=== PATIENT | female | born 1940 | race Caucasian/White ===

== ENCOUNTER 2023-03-05 05:35 | Inpatient (IN) | payer MEDICARE ==
[2023-02-26 14:41] LABS: ABG BASE EXCESS -2.6 mmol/L (-2.0-2.0); ABG HCO3 21.8 mmol/L (22.0-26.0); ABG OXYGEN SATURATION 96.8 % (94-97); ABG PCO2 (T) 36.2 mmHg (32.0-45.0); ABG PH (T) 7.397 (7.350-7.450); ABG PO2 (T) 91.8 mmHg (75.0-100.0); ALLEN'S TEST POSITIVE; FCOHb 0.4 % (0.0-3.9); FHHb 3.2 % (0.0-5.0); FMetHb 0.3 % (0.0-1.5); FO2Hb 96.1 % (94-97); MODE ROOM AIR; TOTAL HEMOGLOBIN 12.1 G/dl (12.0-16.0)
[2023-02-26 15:26] LABS: BILIRUBIN,URINE NEGATIVE (Neg); CLARITY,URINE CLEAR (Clear); COLOR,URINE YELLOW (Yellow); GLUCOSE, URINE NEGATIVE (Neg); KETONES,URINE NEGATIVE (Neg); LEUKOCYTE ESTERASE ,URINE NEGATIVE (Neg); NITRITES, URINE NEGATIVE (Neg); OCCULT BLOOD,URINE NEGATIVE (Neg); PROTEIN,URINE NEGATIVE (Neg); UROBILINOGEN,URINE 0.2 E.U/dL (0.2-1.0)
[2023-02-26 15:28] LABS: BASOPHILS # (AUTO) 0.1 X10'3 (0-0.2); BASOPHILS % (AUTO) 1.1 % (0-1); EOSINOPHILS # (AUTO) 0.3 X10'3 (0-0.9); EOSINOPHILS % (AUTO) 3.9 % (0-6); LYMPHOCYTES # (AUTO) 3.3 X10'3 (1.1-4.8); LYMPHOCYTES % (AUTO) 39.5 % (21-51); MEAN CORPUSCULAR HEMOGLOBIN 30.1 PG (27.0-31.0); MEAN CORPUSCULAR HGB CONC 33.9 g/dL (33.0-36.5); MEAN CORPUSCULAR VOLUME 88.8 FL (78-98); MEAN PLATELET VOLUME 7.1 FL (7.4-10.4); MONOCYTES # (AUTO) 0.5 X10'3 (0-0.9); NEUTROPHILS # (AUTO) 4.1 X10'3 (1.8-7.7); NEUTROPHILS % (AUTO) 49.5 % (42-75); PRE OP HEMATOCRIT 34.8 % (35.0-45.0); PRE OP HEMOGLOBIN 11.8 g/dL (12.0-16.0); PRE OP PLATELET COUNT 325 X10'3 (140-440); PRE OP WHITE BLOOD COUNT 8.3 10'3 (4.8-10.8); RED BLOOD COUNT 3.91 X10'6 (4.20-5.60)
[2023-02-26 15:31] LABS: UA COLLECTION TYPE CLN CATCH MIDSTREAM
[2023-02-26 15:39] LABS: PRE OP PROTIME 10.3 SECONDS (9.0-12.0)
[2023-02-26 15:44] LABS: ALBUMIN 4.1 G/DL (3.4-5.0); ALBUMIN/GLOBULIN RATIO 1.1 (1.1-1.5); ALKALINE PHOSPHATASE 69 IU/L (46-116); BLOOD UREA NITROGEN 15 MG/DL (7-18); BUN/CREATININE RATIO 13.5 (10.0-20.0); CALCIUM 9.6 MG/DL (8.5-10.1); CHLORIDE 101 MMOL/L (99-107); CREATININE 1.11 MG/DL (0.40-0.90); PRE OP ALT 17 U/L (30-65); PRE OP ANION GAP 11 (8-16); PRE OP AST 18 U/L (10-37); PRE OP BILIRUB, TOTAL 0.4 MG/DL (0.0-1.0); PRE OP GLUCOSE 158 MG/DL (70-104); PRE OP POTASSIUM 4.4 MMOL/L (3.4-5.1); PRE OP SODIUM 136 MMOL/L (135-145); TOTAL CARBON DIOXIDE 23.6 MMOL/L (24-32); TOTAL PROTEIN 7.7 G/DL (6.4-8.2); eCRCL 39 ML/MIN; eGFR 47 ML/MIN
[2023-02-26 15:46] LABS: HEMOGLOBIN A1C 7.4 % (4.5-6.2)
[~2023-03-05] VITALS: Ht 165.1 cm; Wt 63.7 kg
[2023-03-05] VITALS (26 sets, daily range): BP systolic 100–141; BP diastolic 35–62; PULSE 64–78; RESP 12–23; TEMP 96.7; O2SAT 94–99
[~2023-03-05 05:35] MED LIST: AMLO5TAB4 PO; ASPI-612 PO; ATOR20TA PO; CALC600T26 PO; CYAN50009 PO; DICL100G59 TOP; DIPH25TA62 PO; DOCUMENT DATE & TIME OF BETA-BLOCKER PO ONE; EVOL140P3 SUBCUT; FLAX10007 PO; HYDR28CR14 TOP; ISOS30TA84 PO; Insulin Reg/NS 100units/100mL 100 ML IV SCH; LANTUS SQ; LOP12.5T PO; LOPE2CAP PO; LORazepam 2 mg/ml vial IV ONE; LOSA-416 PO; OMEG100037 PO; OMEP20CA16 PO; PREMARIN 0.625 MG VG; RESV250C2 PO; SITA1TAB6 PO; UBID200C18 PO; [UNRECOGNIZED DRUG - OTHER] PO; albuterol 2.5 MG/3 ML nebule NEB ONE; cefazolin 2gm/D5W 100mL 100 ML IV ONE; dextrose 50%-water 50ml dispensing syringe IV PRN; famotidine 20mg tablet PO ONE; metoprolol tartrate 12.5mg (1/2 tablet) PO ONE; mupirocin 2% nasal ointment 1gm UD NS ONE; ringers solution, lacted 1,000 ML IV SCH; vancomycin/NS 1 GM in NS 250 ML IV ONE
[2023-03-05] MEDS ORDERED: epiNEPHrine 1 mg/ml inj ONE ×2 (06:56→12:36)
[2023-03-05] MEDS ORDERED: ceFAZolin 1000mg inj ONE (06:56)
[2023-03-05] MEDS ORDERED: heparin 10,000 units/1 ML INJ ONE ×2 (06:56→08:00)
[2023-03-05] MEDS ORDERED: BUPIVAcaine 0.5% inj/PF 30 ML ONE (06:56)
[2023-03-05] MEDS ORDERED: vancomycin 1,000mg inj ONE (07:01)
[2023-03-05] MEDS ORDERED: midazolam 1 mg/ML 2ml injection ONE (07:22)
[2023-03-05] MEDS ORDERED: SUfentanil 50mcg/ml 1ml amp IV ONE ×2 (07:22)
[2023-03-05] MEDS ORDERED: albumin (human) 25% 100 ML IV solution IV ONE (08:00)
[2023-03-05] MEDS ORDERED: MAGNESIUM SULFATE 4 MEQ/ML (5gm/10ml) injection ONE (08:00)
[2023-03-05] MEDS ORDERED: methylPREDNISolone sod succ 1000mg vial ONE (08:00)
[2023-03-05] MEDS ORDERED: NORepinephrine 1 mg/ml inj IV ONE (08:00)
[2023-03-05] MEDS ORDERED: mannitol 12.5gm/50mL VIAL IV ONE (08:00)
[2023-03-05] MEDS ORDERED: sodium bicarbonate (8.4%) 1 mEq/ml syringe ONE (08:00)
[2023-03-05] MEDS ORDERED: calcium chloride 100 MG/1 ML inj IV ONE (08:00)
[2023-03-05] MEDS ORDERED: aminocaproic acid 250 MG/1 ML inj. ONE (08:00)
[2023-03-05] MEDS ORDERED: papaverine 30 mg/ml 2ml inj. ONE (08:00)
[2023-03-05] MEDS ORDERED: BUPIVAcaine 0.5% inj/PF 30 ml vial IJ ONE (08:23)
[2023-03-05] MEDS ORDERED: protamine sulf. 10mg/ml inj. IV ONE (10:15)
[2023-03-05] MEDS ORDERED: NORepinephrine 8 MG in NS 250 ML BAG (32 mcg/ml) IV ONE (10:15)
[2023-03-05] MEDS ORDERED: nitroGLYCERIN in D5W 50mg/250ml (Tridil) infusion IV ONE (10:15)
[2023-03-05] MEDS ORDERED: LIDOcaine 2% (20mg/ml) 5ml vial ONE ×2 (10:15→12:36)
[2023-03-05] MEDS ORDERED: labetalol 20mg/4ml (5mg/ml) syringe IV ONE (10:15)
[2023-03-05] MEDS ORDERED: isoflurane 100ml inhalation liquid IH ONE (10:15)
[2023-03-05 10:57] LABS: ABG BASE EXCESS -0.5 mmol/L (-2.0-2.0); ABG HCO3 23.2 mmol/L (22.0-26.0); ABG OXYGEN SATURATION 99.3 % (94-97); ABG PCO2 34.7 mmHg (32.0-45.0); ABG PH 7.443 (7.350-7.450); ABG PO2 369.2 mmHg (75.0-100.0); CL (ABG) 106 mmol/L (99-107); FCOHb 0.3 % (0.0-3.9); FHHb 0.7 % (0.0-5.0); FMetHb 0.3 % (0.0-1.5); FO2Hb 98.7 % (94-97); GLUCOSE (ABG) 116 mg/dl (70-104); IONIZED CA (ABG) 1.17 mmol/L (1.10-1.30); TOTAL HEMOGLOBIN 10.4 G/dl (12.0-16.0)
[2023-03-05 11:08] LABS: ACT @ 1.70 U 292 SEC (193-297); ACT @ 2.84 U 418 SEC (260-420); BASELINE ACT 133 SEC (101-148); PATIENT WEIGHT 63.0k KG
[2023-03-05 12:00] LABS: ABG BASE EXCESS VENOUS 1.5 mmol/L (-2.0 - 2.0); ABG OXYGEN SATURATION VENOUS 85.1 % (75 - 99 %); ABG PCO2 VENOUS 40.3 mmHg (38.0-51.0); ABG PH (VENOUS) 7.427 (7.310-7.450); CL (ABG) 101 mmol/L (99-107); FCOHb VENOUS 0.4 % (0.0- 3.9); FHHb VENOUS 14.8 %; FMetHb VENOUS 0.3 % (0.0 - 0.5); FO2Hb VENOUS 84.5 %; GLUCOSE (ABG) 122 mg/dl (70-104); K (ABG) 4.1 mmol/L (3.5-5.1)
[2023-03-05] MEDS ORDERED: ipratropium/albuterol 3ml nebule IH PRN (12:00)
[2023-03-05 12:02] LABS: ABG BASE EXCESS 0.9 mmol/L (-2.0-2.0); ABG HCO3 24.6 mmol/L (22.0-26.0); ABG OXYGEN SATURATION 99.6 % (94-97); ABG PCO2 34.2 mmHg (32.0-45.0); ABG PH 7.474 (7.350-7.450); ABG PO2 455.5 mmHg (75.0-100.0); CL (ABG) 102 mmol/L (99-107); FCOHb 0.9 % (0.0-3.9); FHHb 0.4 % (0.0-5.0); FMetHb 0.3 % (0.0-1.5); FO2Hb 98.4 % (94-97); GLUCOSE (ABG) 124 mg/dl (70-104); IONIZED CA (ABG) 0.94 mmol/L (1.10-1.30); K (ABG) 4.1 mmol/L (3.5-5.1)
[2023-03-05 12:30] LABS: ABG BASE EXCESS -1.4 mmol/L (-2.0-2.0); ABG HCO3 23.7 mmol/L (22.0-26.0); ABG OXYGEN SATURATION 99.4 % (94-97); ABG PCO2 41.1 mmHg (32.0-45.0); ABG PH 7.378 (7.350-7.450); ABG PO2 294.9 mmHg (75.0-100.0); CL (ABG) 105 mmol/L (99-107); FCOHb 0.3 % (0.0-3.9); FHHb 0.6 % (0.0-5.0); FMetHb 0.3 % (0.0-1.5); FO2Hb 98.8 % (94-97); GLUCOSE (ABG) 164 mg/dl (70-104); IONIZED CA (ABG) 1.02 mmol/L (1.10-1.30); K (ABG) 4.8 mmol/L (3.5-5.1); TOTAL HEMOGLOBIN 7.8 G/dl (12.0-16.0)
[2023-03-05] MEDS ORDERED: propofol inj 20 ML IV ONE (12:36)
[2023-03-05] MEDS ORDERED: phenylephrine 10mg/ml inj. -priapism dosing ONE (12:36)
[2023-03-05] MEDS ORDERED: acetaminophen 1,000mg/100ml IV 100 ML IV ONE (12:36)
[2023-03-05] MEDS ORDERED: rocuronium 10mg/ml inj IV ONE (12:36)
[2023-03-05 12:51] LABS: ABG BASE EXCESS 0.7 mmol/L (-2.0-2.0); ABG HCO3 25.4 mmol/L (22.0-26.0); ABG OXYGEN SATURATION 98.8 % (94-97); ABG PCO2 41.2 mmHg (32.0-45.0); ABG PH 7.408 (7.350-7.450); ABG PO2 292.3 mmHg (75.0-100.0); CL (ABG) 104 mmol/L (99-107); FCOHb 0.3 % (0.0-3.9); FHHb 1.2 % (0.0-5.0); FMetHb 0.3 % (0.0-1.5); FO2Hb 98.2 % (94-97); GLUCOSE (ABG) 169 mg/dl (70-104); IONIZED CA (ABG) 1.34 mmol/L (1.10-1.30); K (ABG) 4.5 mmol/L (3.5-5.1); TOTAL HEMOGLOBIN 7.6 G/dl (12.0-16.0)
[2023-03-05 13:22] LABS: ABG BASE EXCESS 0.5 mmol/L (-2.0-2.0); ABG HCO3 25.4 mmol/L (22.0-26.0); ABG OXYGEN SATURATION 81.9 % (94-97); ABG PCO2 41.6 mmHg (32.0-45.0); ABG PH 7.403 (7.350-7.450); CL (ABG) 105 mmol/L (99-107); FCOHb 0.3 % (0.0-3.9); FMetHb 0.3 % (0.0-1.5); FO2Hb 81.4 % (94-97); GLUCOSE (ABG) 169 mg/dl (70-104); IONIZED CA (ABG) 1.21 mmol/L (1.10-1.30); K (ABG) 4.3 mmol/L (3.5-5.1); TOTAL HEMOGLOBIN 8.9 G/dl (12.0-16.0)
[2023-03-05 13:25] LABS: ACTIVATED CLOTTING TIME 124 SEC (101-148)
[2023-03-05] MEDS ORDERED: Neutra Phos packet PO PRN (13:35)
[2023-03-05] MEDS ORDERED: nitroGLYCERIN-Tridil 50MG/D5W 250 ML IV SCH (13:35)
[2023-03-05] MEDS ORDERED: sodium phosphate inj. 15 MMOL in dextrose 5%-water 250 ML IV PRN (13:35)
[2023-03-05] MEDS ORDERED: magnesium hydroxide 30ml (MOM) UD suspension PO PRN (13:35)
[2023-03-05] MEDS ORDERED: mineral oil 133ml enema RC PRN (13:35)
[2023-03-05] MEDS ORDERED: morphine 2 MG/ML inj. syringe IV PRN (13:35)
[2023-03-05] MEDS ORDERED: potassium CL 10mEq/100ml bag 100 ML IV PRN (13:35)
[2023-03-05] MEDS ORDERED: niCARDipine-NS 40mg/200ml IVPB 200 ML IV PRN (13:35)
[2023-03-05] MEDS: sodium chloride 0.45% 1,000 ML IV SCH (13:35)
[2023-03-05] MEDS ORDERED: magnesium 4gm in 100ml NS 100 ML IV PRN (13:35)
[2023-03-05] MEDS ORDERED: dextrose 50%-water 50ml dispensing syringe IV PRN (13:35)
[2023-03-05] MEDS ORDERED: NORepinephrine 8mg/ 250ml NS 250 ML IV PRN (13:35)
[2023-03-05] MEDS ORDERED: Insulin Reg/NS 100units/100mL 100 ML IV SCH (13:35)
[2023-03-05] MEDS ORDERED: potassium Cl 40MEQ/1/2NS 520ml 520 ML IV PRN (13:35)
[2023-03-05] MEDS ORDERED: potassium Cl 40MEQ/270ML bag 250 ML IV PRN (13:35)
[2023-03-05] MEDS ORDERED: sodium phosphate inj. 30 MMOL in dextrose 5%-water 250 ML IV PRN (13:35)
[2023-03-05] MEDS ORDERED: morphine 4 MG/ML inj SYRINge IV PRN (13:35)
[2023-03-05] MEDS ORDERED: potassium Cl 20 mEq SR tablet PO PRN (13:35)
[2023-03-05] MEDS ORDERED: bisacodyl 10mg suppository rectal RC PRN (13:35)
--- NOTE | 2023-03-05 14:00 | NUR ---
Received to room , accompanied by MDs and surgical crew. Placed on ventilator, to lunchroom monitor, arterial line and PA line pressure zeroed & monitored. Chest tubes to suction at 20 cm. Allen cath to gravity drainage. Dressings are dry and intact. See assessment record. All vasoactive drugs are infusing via central line.
[2023-03-05 14:13] LABS: ABG BASE EXCESS -1.4 mmol/L (-2.0-2.0); ABG HCO3 23.4 mmol/L (22.0-26.0); ABG OXYGEN SATURATION 99.1 % (94-97); ABG PCO2 (T) 37.9 mmHg (32.0-45.0); ABG PH (T) 7.404 (7.350-7.450); ABG PO2 (T) 210.5 mmHg (75.0-100.0); FCOHb 0.8 % (0.0-3.9); FHHb 0.9 % (0.0-5.0); FMetHb 0.3 % (0.0-1.5); MODE VENT - SIMV; PATIENT TEMPERATURE 36.1; PEEP 5 cm H2O; RESPIRATORY RATE 12 b/min; TIDAL VOLUME 500 mL; TOTAL HEMOGLOBIN 10.6 G/dl (12.0-16.0)
[2023-03-05 14:16] LABS: BASOPHILS # (AUTO) 0.1 X10'3 (0-0.2); BASOPHILS % (AUTO) 0.7 % (0-1); EOSINOPHILS # (AUTO) 0.2 X10'3 (0-0.9); EOSINOPHILS % (AUTO) 1.8 % (0-6); HEMOGLOBIN 10.5 g/dl (12.0-16.0); LYMPHOCYTES # (AUTO) 1.5 X10'3 (1.1-4.8); MEAN CORPUSCULAR HEMOGLOBIN 30.8 PG (27.0-31.0); MEAN CORPUSCULAR HGB CONC 35.1 g/dL (33.0-36.5); MEAN CORPUSCULAR VOLUME 87.6 FL (78-98); MEAN PLATELET VOLUME 7.2 FL (7.4-10.4); MONOCYTES # (AUTO) 0.6 X10'3 (0-0.9); MONOCYTES % (AUTO) 5.2 % (2-12); NEUTROPHILS # (AUTO) 8.2 X10'3 (1.8-7.7); NEUTROPHILS % (AUTO) 78.3 % (42-75); PLATELET COUNT 169 X10'3 (140-440); RED BLOOD COUNT 3.42 X10'6 (4.20-5.60); WHITE BLOOD COUNT 10.5 X10'3 (4.5-11.0)
[2023-03-05 14:30] LABS: ALANINE AMINOTRANSFERASE 21 U/L (12-78); ALBUMIN/GLOBULIN RATIO 1.3 (1.1-1.5); ALKALINE PHOSPHATASE 43 IU/L (46-116); ANION GAP 9 (8-16); ASPARTATE AMINO TRANSFERASE 23 U/L (10-37); BILIRUBIN,TOTAL 0.5 MG/DL (0.1-1.0); BLOOD UREA NITROGEN 20 MG/DL (7-18); CALCIUM 8.8 MG/DL (8.5-10.1); CHLORIDE 108 MMOL/L (99-107); CREATININE 1.05 MG/DL (0.40-0.90); GLUCOSE 157 MG/DL (70-104); MAGNESIUM 1.7 MG/DL (1.5-2.4); PHOSPHORUS 2.7 MG/DL (2.3-4.5); POTASSIUM 3.9 MMOL/L (3.5-5.1); SODIUM 141 MMOL/L (135-145); TOTAL CARBON DIOXIDE 24.3 MMOL/L (24-32); TOTAL PROTEIN 5.3 G/DL (6.4-8.2); eCRCL 42 ML/MIN; eGFR 50 ML/MIN
[2023-03-05 14:38] LABS: APTT 27 SECONDS (22-32); INR 1.2 INR; PROTHROMBIN TIME 12.8 SECONDS (9.0-12.0)
[2023-03-05] MEDS: potassium Cl 20mEq/100mL bag 100 ML IV PRN ×4 (15:12→22:43)
[2023-03-05] MEDS: ceFAZolin/D5W- 1GM premix 50 ML IV SCH (15:58)
[2023-03-05] MEDS: albumin (Human) 5% 250ml 250 ML IV PRN ×2 (17:15→17:44)
--- NOTE | 2023-03-05 17:45 | NUR ---
Called Dr Nam in regards to patients low systolic and that she has received one albumin, he stated that she should have received 3 by now. Stated to just give her 2 more albumin
[2023-03-05] MEDS: magnesium 2GM in 50ml NS 50 ML IV PRN (18:11)
--- NOTE | 2023-03-05 18:19 | NUR ---
Problems reprioritized. Patient report given, questions answered & plan of care reviewed with Elva JOE.
--- NOTE | 2023-03-05 18:30 | NUR ---
Patient in room ICU 2042. I have received report from Nisha JOE and had the opportunity to ask questions and assume patient care.
[2023-03-05] MEDS: HYDROcodone/acetaminophen 10/325mg tab PO PRN (19:32)
[2023-03-05] MEDS: atorvastatin 10mg tablet PO SCH (19:33)
[2023-03-05] MEDS: vancomycin/NS 1 GM ADD-VANTAGE 250 ML IV SCH (19:33)
[2023-03-05] MEDS: ondansetron/PF 4mg/2ml inj IV PRN (19:33)
[2023-03-05] MEDS ORDERED: mupirocin 2% ointment 22GM NS SCH (20:00)
[2023-03-05 20:29] LABS: BASOPHILS % (AUTO) 0.3 % (0-1); EOSINOPHILS % (AUTO) 0.1 % (0-6); HEMATOCRIT 28.5 % (35.0-45.0); HEMOGLOBIN 9.8 g/dl (12.0-16.0); LYMPHOCYTES # (AUTO) 1.1 X10'3 (1.1-4.8); LYMPHOCYTES % (AUTO) 7.8 % (21-51); MEAN CORPUSCULAR HEMOGLOBIN 30.2 PG (27.0-31.0); MEAN CORPUSCULAR HGB CONC 34.2 g/dL (33.0-36.5); MEAN CORPUSCULAR VOLUME 88.2 FL (78-98); MEAN PLATELET VOLUME 7.1 FL (7.4-10.4); MONOCYTES # (AUTO) 1.2 X10'3 (0-0.9); MONOCYTES % (AUTO) 8.2 % (2-12); NEUTROPHILS # (AUTO) 12.2 X10'3 (1.8-7.7); NEUTROPHILS % (AUTO) 83.6 % (42-75); PLATELET COUNT 205 X10'3 (140-440); RED BLOOD COUNT 3.23 X10'6 (4.20-5.60); WHITE BLOOD COUNT 14.5 X10'3 (4.5-11.0)
[2023-03-05 20:36] LABS: ALBUMIN 3.9 G/DL (3.4-5.0); ANION GAP 17 (8-16); BLOOD UREA NITROGEN 20 MG/DL (7-18); BUN/CREATININE RATIO 15.6 (10.0-20.0); CALCIUM 8.9 MG/DL (8.5-10.1); CHLORIDE 108 MMOL/L (99-107); CREATININE 1.28 MG/DL (0.40-0.90); GLUCOSE 163 MG/DL (70-104); MAGNESIUM 3.5 MG/DL (1.5-2.4); PHOSPHORUS 1.4 MG/DL (2.3-4.5); SODIUM 143 MMOL/L (135-145); TOTAL CARBON DIOXIDE 18.1 MMOL/L (24-32); eCRCL 32 ML/MIN; eGFR 40 ML/MIN
[2023-03-05 20:42] LABS: POTASSIUM 2.9 MMOL/L (3.5-5.1)
[2023-03-05 20:48] LABS: ABG BASE EXCESS -7.3 mmol/L (-2.0-2.0); ABG HCO3 17.9 mmol/L (22.0-26.0); ABG OXYGEN SATURATION 97.6 % (94-97); ABG PH (T) 7.326 (7.350-7.450); ABG PO2 (T) 106.8 mmHg (75.0-100.0); FCOHb 0.3 % (0.0-3.9); FHHb 2.4 % (0.0-5.0); FMetHb 0.3 % (0.0-1.5); PEEP 5 cm H2O; TOTAL HEMOGLOBIN 10.5 G/dl (12.0-16.0)
[2023-03-05] MEDS ORDERED: ketorolac tromethamine 15mg/ml inj. IV ONE (21:25)
[2023-03-05] MEDS: sennosides/docusate sodium tablet PO SCH (21:41)
[2023-03-05] MEDS: metoclopramide 5 mg/ml inj IV PRN (22:43)
[2023-03-05] MEDS: mupirocin 2% nasal ointment 1gm UD NS SCH (23:12)
[2023-03-06] VITALS (25 sets, daily range): BP systolic 107–170; BP diastolic 46–74; PULSE 79–80; RESP 15–25; O2SAT 89–97
[2023-03-06] MEDS: potassium Cl 20mEq/100mL bag 100 ML IV PRN ×2 (00:04→01:16)
[2023-03-06] MEDS: ceFAZolin/D5W- 1GM premix 50 ML IV SCH ×3 (00:09→16:19)
[2023-03-06 04:22] LABS: BASOPHILS % (AUTO) 0 % (0-1); EOSINOPHILS % (AUTO) 0 % (0-6); HEMATOCRIT 26.3 % (35.0-45.0); LYMPHOCYTES % (AUTO) 9.2 % (21-51); MEAN CORPUSCULAR HEMOGLOBIN 30.3 PG (27.0-31.0); MEAN CORPUSCULAR HGB CONC 34.3 g/dL (33.0-36.5); MEAN CORPUSCULAR VOLUME 88.4 FL (78-98); MEAN PLATELET VOLUME 7.5 FL (7.4-10.4); MONOCYTES # (AUTO) 0.8 X10'3 (0-0.9); MONOCYTES % (AUTO) 7.6 % (2-12); NEUTROPHILS # (AUTO) 9.2 X10'3 (1.8-7.7); NEUTROPHILS % (AUTO) 83.2 % (42-75); PLATELET COUNT 150 X10'3 (140-440); RED BLOOD COUNT 2.97 X10'6 (4.20-5.60); RED CELL DISTRIBUTION WIDTH 13.1 % (11.5-14.5); WHITE BLOOD COUNT 11.1 X10'3 (4.5-11.0)
[2023-03-06 04:29] LABS: ALANINE AMINOTRANSFERASE 28 U/L (12-78); ALBUMIN 3.4 G/DL (3.4-5.0); ALBUMIN/GLOBULIN RATIO 1.7 (1.1-1.5); ALKALINE PHOSPHATASE 35 IU/L (46-116); ANION GAP 11 (8-16); ASPARTATE AMINO TRANSFERASE 50 U/L (10-37); BILIRUBIN,TOTAL 0.2 MG/DL (0.1-1.0); BLOOD UREA NITROGEN 21 MG/DL (7-18); BUN/CREATININE RATIO 16.8 (10.0-20.0); CALCIUM 8.5 MG/DL (8.5-10.1); CHLORIDE 110 MMOL/L (99-107); CREATININE 1.25 MG/DL (0.40-0.90); GLUCOSE 149 MG/DL (70-104); MAGNESIUM 2.7 MG/DL (1.5-2.4); PHOSPHORUS 3.7 MG/DL (2.3-4.5); POTASSIUM 5.8 MMOL/L (3.5-5.1); SODIUM 140 MMOL/L (135-145); TOTAL CARBON DIOXIDE 19.4 MMOL/L (24-32); TOTAL PROTEIN 5.4 G/DL (6.4-8.2); eCRCL 32 ML/MIN; eGFR 41 ML/MIN
--- NOTE | 2023-03-06 06:58 | NUR ---
Patient in room ICU 2042. I have received report from Emeli JOE and had the opportunity to ask questions and assume patient care.
[2023-03-06 07:53] LABS: TOTAL HEMOGLOBIN 6.3 G/dl (12.0-16.0)
[2023-03-06 07:54] LABS: TOTAL HEMOGLOBIN 6.3 G/dl (12.0-16.0)
[2023-03-06 07:55] LABS: ABG PO2 44.3 mmHg (75.0-100.0)
[2023-03-06] MEDS: mupirocin 2% nasal ointment 1gm UD NS SCH ×2 (08:00→20:04)
[2023-03-06] MEDS ORDERED: metoprolol tartrate 12.5mg (1/2 tablet) PO SCH (08:00)
--- NOTE | 2023-03-06 08:30 | NUR ---
Dr. Nam by to round on patient, MD aware that patients underlying rhythm is still junctional. New orders D/C elmer keep ART line for now
[2023-03-06] MEDS ORDERED: acetaminophen 1,000mg/100ml IV 100 ML IV ONE (08:35)
[2023-03-06] MEDS: insulin glargine (Lantus) pen - multi-dose SQ PRN (10:02)
--- NOTE | 2023-03-06 10:31 | NUR ---
Nutrition consult: Per EMR pt POD #1 s/p CABG x 3. Pt would benefit from nutrition therapy education as appropriate. Per EMR pt with T2DM, well controlled for geriatric age with A1c 7.4%, DM education not warranted at this time. Will continue to follow. Addendum: 03/06/23 at [address] Amended: Links added.
[2023-03-06] MEDS: ondansetron/PF 4mg/2ml inj IV PRN ×3 (11:23→22:45)
[2023-03-06] MEDS: aspirin 81mg tab.chew PO SCH (11:23)
[2023-03-06] MEDS: HYDROcodone/acetaminophen 10/325mg tab PO PRN ×3 (11:24→22:46)
[2023-03-06] MEDS: sennosides/docusate sodium tablet PO SCH ×2 (11:25→20:00)
[2023-03-06] MEDS: vancomycin/NS 1 GM ADD-VANTAGE 250 ML IV SCH ×2 (11:26→20:04)
[2023-03-06 13:08] LABS: ALBUMIN 3.2 G/DL (3.4-5.0); ANION GAP 12 (8-16); BLOOD UREA NITROGEN 25 MG/DL (7-18); BUN/CREATININE RATIO 19.8 (10.0-20.0); CALCIUM 8.2 MG/DL (8.5-10.1); CHLORIDE 104 MMOL/L (99-107); CREATININE 1.26 MG/DL (0.40-0.90); GLUCOSE 279 MG/DL (70-104); POTASSIUM 5.2 MMOL/L (3.5-5.1); SODIUM 135 MMOL/L (135-145); TOTAL CARBON DIOXIDE 19.1 MMOL/L (24-32); eCRCL 32 ML/MIN; eGFR 41 ML/MIN
[2023-03-06] MEDS: insulin Lispro (HumaLOG) vial - multi-dose SQ SCH ×2 (15:10→20:06)
--- NOTE | 2023-03-06 16:44 | NUR ---
Problems reprioritized. Patient report given, questions answered & plan of care reviewed with Rayna JOE.
--- NOTE | 2023-03-06 18:30 | NUR ---
Patient in room ICU 2042. I have received report from Rayna JOE and had the opportunity to ask questions and assume patient care.
--- NOTE | 2023-03-06 18:32 | NUR ---
Problems reprioritized. Patient report given, questions answered & plan of care reviewed with Dia JOE.
--- NOTE | 2023-03-06 18:36 | NUR ---
Dr. Nam by to round on patient, informed him that the cardene was turned back on due to her SBP 160-170. He is aware and ok with it being on as she has a junctional rhythm and can not have any betablockers
[2023-03-06] MEDS: amLODIPine 5mg tablet PO SCH (20:04)
[2023-03-06] MEDS: atorvastatin 10mg tablet PO SCH (20:05)
[2023-03-07] VITALS (25 sets, daily range): BP systolic 129–188; BP diastolic 46–80; PULSE 69–80; RESP 14–25; O2SAT 90–95
[2023-03-07] MEDS: ceFAZolin/D5W- 1GM premix 50 ML IV SCH (00:26)
[2023-03-07] MEDS: metoclopramide 5 mg/ml inj IV PRN (03:21)
[2023-03-07 04:26] LABS: BASOPHILS # (AUTO) 0.1 X10'3 (0-0.2); BASOPHILS % (AUTO) 0.3 % (0-1); EOSINOPHILS % (AUTO) 0 % (0-6); HEMOGLOBIN 9.8 g/dl (12.0-16.0); LYMPHOCYTES # (AUTO) 2.9 X10'3 (1.1-4.8); LYMPHOCYTES % (AUTO) 11.8 % (21-51); MEAN CORPUSCULAR HGB CONC 32.8 g/dL (33.0-36.5); MEAN CORPUSCULAR VOLUME 88.5 FL (78-98); MONOCYTES # (AUTO) 2.2 X10'3 (0-0.9); MONOCYTES % (AUTO) 8.7 % (2-12); NEUTROPHILS # (AUTO) 19.7 X10'3 (1.8-7.7); NEUTROPHILS % (AUTO) 79.2 % (42-75); PLATELET COUNT 208 X10'3 (140-440); RED BLOOD COUNT 3.39 X10'6 (4.20-5.60); RED CELL DISTRIBUTION WIDTH 13.1 % (11.5-14.5); WHITE BLOOD COUNT 24.9 X10'3 (4.5-11.0)
[2023-03-07 04:39] LABS: ANION GAP 10 (8-16); BLOOD UREA NITROGEN 24 MG/DL (7-18); BUN/CREATININE RATIO 23.8 (10.0-20.0); CHLORIDE 101 MMOL/L (99-107); CREATININE 1.01 MG/DL (0.40-0.90); GLUCOSE 143 MG/DL (70-104); PHOSPHORUS 3.9 MG/DL (2.3-4.5); POTASSIUM 4.6 MMOL/L (3.5-5.1); SODIUM 132 MMOL/L (135-145); TOTAL CARBON DIOXIDE 20.8 MMOL/L (24-32); eCRCL 40 ML/MIN; eGFR 53 ML/MIN
[2023-03-07 04:40] LABS: ALBUMIN 3.3 G/DL (3.4-5.0); MAGNESIUM 2.1 MG/DL (1.5-2.4)
[2023-03-07] MEDS: HYDROcodone/acetaminophen 10/325mg tab PO PRN ×5 (05:39→21:02)
[2023-03-07] MEDS: ondansetron/PF 4mg/2ml inj IV PRN ×3 (05:39→20:30)
[2023-03-07] MEDS: magnesium 2GM in 50ml NS 50 ML IV PRN (05:39)
[2023-03-07 05:57] LABS: TOTAL CELLS COUNTED 100
[2023-03-07 05:58] LABS: PLATELET ESTIMATE NORMAL
--- NOTE | 2023-03-07 06:45 | NUR ---
Problems reprioritized. Patient report given, questions answered & plan of care reviewed with Graciela JOE.
[2023-03-07] MEDS ORDERED: furosemide 40mg/4ml inj IV ONE (08:20)
[2023-03-07] MEDS: aspirin 81mg tab.chew PO SCH (08:58)
[2023-03-07] MEDS: mupirocin 2% nasal ointment 1gm UD NS SCH (08:58)
[2023-03-07] MEDS: sennosides/docusate sodium tablet PO SCH ×2 (08:58→21:02)
[2023-03-07] MEDS: pantoprazole 40mg Tablet.DR PO SCH (09:00)
--- NOTE | 2023-03-07 09:56 | NUR ---
Pt ate approx. 25% of breakfast. She has been OOB to chair x 1 hour. She c/o pain and was medicated w/ [place] 1 tab. PT to walk pt.
[2023-03-07] MEDS: sodium chloride 0.45% 1,000 ML IV SCH (13:35)
[2023-03-07] MEDS: insulin Lispro (HumaLOG) vial - multi-dose SQ SCH ×2 (15:08→18:47)
--- NOTE | 2023-03-07 15:15 | NUR ---
Family visited for an hour. Pt did her IS to 250, and then c/o increased pain. She was medicated w/ 1 tab and repositioned, but it did not help. She was just medicated again w/ 1 [place].
--- NOTE | 2023-03-07 17:40 | NUR ---
Pt slept well for approx. 90 min. Surgical pain had decreased. Family back at bedside. Pt ready to eat.
--- NOTE | 2023-03-07 18:30 | NUR ---
Patient in room ICU 2042. I have received report from Graciela JOE and had the opportunity to ask questions and assume patient care.
--- NOTE | 2023-03-07 18:30 | NUR ---
Report given to Elva JOE.
[2023-03-07] MEDS: amLODIPine 5mg tablet PO SCH (21:01)
[2023-03-07] MEDS: atorvastatin 10mg tablet PO SCH (21:01)
[2023-03-07] MEDS: insulin glargine (Lantus) pen - multi-dose SQ PRN (21:06)
[2023-03-08] VITALS (20 sets, daily range): BP systolic 111–186; BP diastolic 46–82; PULSE 68–86; RESP 10–20; TEMP 97.4; O2SAT 89–98
[2023-03-08] MEDS: metoclopramide 5 mg/ml inj IV PRN ×3 (01:16→20:56)
[2023-03-08] MEDS: HYDROcodone/acetaminophen 10/325mg tab PO PRN ×3 (01:31→21:10)
[2023-03-08 03:26] LABS: BASOPHILS % (AUTO) 0.1 % (0-1); EOSINOPHILS % (AUTO) 0 % (0-6); HEMATOCRIT 27.6 % (35.0-45.0); HEMOGLOBIN 9.3 g/dl (12.0-16.0); LYMPHOCYTES # (AUTO) 2.6 X10'3 (1.1-4.8); LYMPHOCYTES % (AUTO) 15.3 % (21-51); MEAN CORPUSCULAR HEMOGLOBIN 29.8 PG (27.0-31.0); MEAN CORPUSCULAR HGB CONC 33.9 g/dL (33.0-36.5); MEAN CORPUSCULAR VOLUME 88.1 FL (78-98); MEAN PLATELET VOLUME 7.3 FL (7.4-10.4); MONOCYTES # (AUTO) 1.5 X10'3 (0-0.9); MONOCYTES % (AUTO) 8.8 % (2-12); NEUTROPHILS # (AUTO) 12.9 X10'3 (1.8-7.7); NEUTROPHILS % (AUTO) 75.8 % (42-75); PLATELET COUNT 179 X10'3 (140-440); RED BLOOD COUNT 3.13 X10'6 (4.20-5.60); RED CELL DISTRIBUTION WIDTH 13.2 % (11.5-14.5)
[2023-03-08 03:39] LABS: ALBUMIN 2.9 G/DL (3.4-5.0); ANION GAP 5 (8-16); BLOOD UREA NITROGEN 26 MG/DL (7-18); BUN/CREATININE RATIO 25.5 (10.0-20.0); CALCIUM 8.1 MG/DL (8.5-10.1); CHLORIDE 99 MMOL/L (99-107); CREATININE 1.02 MG/DL (0.40-0.90); GLUCOSE 109 MG/DL (70-104); MAGNESIUM 2.1 MG/DL (1.5-2.4); PHOSPHORUS 3.2 MG/DL (2.3-4.5); POTASSIUM 4.6 MMOL/L (3.5-5.1); SODIUM 130 MMOL/L (135-145); TOTAL CARBON DIOXIDE 26.4 MMOL/L (24-32); eCRCL 40 ML/MIN; eGFR 52 ML/MIN
[2023-03-08] MEDS: ondansetron/PF 4mg/2ml inj IV PRN ×2 (05:44→08:45)
--- NOTE | 2023-03-08 06:15 | NUR ---
Problems reprioritized. Patient report given, questions answered & plan of care reviewed with ILEANA JOE.
--- NOTE | 2023-03-08 06:30 | NUR ---
Assumed care of pt; received report from Emeli JOE.
--- NOTE | 2023-03-08 07:51 | NUR ---
PA at bedside and removed all the CT's at 0735. Pt tolerated it well. O2NC @ 5 L.
[2023-03-08] MEDS ORDERED: magnesium 4gm in 100ml NS 100 ML IV PRN (08:00)
[2023-03-08] MEDS ORDERED: magnesium 2GM in 50ml NS 50 ML IV PRN (08:00)
[2023-03-08] MEDS ORDERED: potassium Cl 20mEq/100mL bag 100 ML IV PRN (08:00)
[2023-03-08] MEDS ORDERED: potassium Cl 20 mEq SR tablet PO PRN ×2 (08:00)
[2023-03-08] MEDS ORDERED: potassium Cl 40MEQ/270ML bag 250 ML IV PRN (08:00)
[2023-03-08] MEDS ORDERED: potassium CL 10mEq/100ml bag 100 ML IV PRN (08:00)
[2023-03-08] MEDS: magnesium Cl slow-release 64mg tablet PO SCH ×2 (08:00→20:00)
[2023-03-08] MEDS ORDERED: potassium Cl 40MEQ/1/2NS 520ml 520 ML IV PRN (08:00)
[2023-03-08] MEDS: sennosides/docusate sodium tablet PO SCH ×2 (08:45→20:00)
[2023-03-08] MEDS: pantoprazole 40mg Tablet.DR PO SCH (08:46)
[2023-03-08] MEDS: aspirin 81mg tab.chew PO SCH (08:46)
--- NOTE | 2023-03-08 09:15 | NUR ---
At 0820, pt was assisted OOB to chair w/ 2 RNs. Pt co/ nausea and was medicated w/ Zofran. Pt vomited only a small amount, and has eaten some breakfast.
--- NOTE | 2023-03-08 10:30 | NUR ---
Pt ambulated for 300 ft after breakfast and tolerated it well. She was assisted back to bed to rest.
--- NOTE | 2023-03-08 13:44 | NUR ---
Pt has been OOB to chair for lunch, but is disinterested in the food and c/o nausea. Pt was medicated w/ Reglan to see if that works better than the Zofran. Family is at bedside. Spray Machine Loader will send a sandwich to pt.
--- NOTE | 2023-03-08 13:49 | NUR ---
F/u for nutrition consult: Pt seen at bedside with family present for written and verbal post CABG nutrition therapy education. Noted pt eating poorly, documented with mostly 25% PO intake of meals not sufficient to meet estimated nutrient needs. Pt and family report disliking the food and nausea impacting appetite/PO intake. RD continually encouraged PO intake however pt not very forthcoming with food preferences though did agree to an alternative lunch today, d/w dietary. Pt ultimately agreed to strawberry or vanilla Ensure. Recommend ONS TID d/t poor PO intake, to be sent pending physician approval in EMR. Pt denies difficulty chewing, swallowing, or feeding self with incision site. LBM 03/05 per EMR. Pt agrees to prunes with alternative lunch tray, d/w dietary. Per EMR pt receiving routine bowel care and has received three doses of PRN Reglan. Additional PRN bowel care is available. Pt and family provided with RD contact information and encouraged to reach out if needed. Information obtained from pt and family were d/w bedside RN. Will remain available. Addendum: 03/08/23 at [address] Amended: Links added.
[2023-03-08] MEDS: insulin Lispro (HumaLOG) vial - multi-dose SQ SCH (14:48)
--- NOTE | 2023-03-08 17:10 | NUR ---
Central line and forrester cath dc'd, Pt tolerated it well. On hold waiting to give report to PCU.
[2023-03-08] MEDS: acetaminophen 325mg tablet PO PRN (17:42)
[2023-03-08] MEDS: lactose-reduced food (Ensure Enlive) - 237ml bottle PO SCH (18:00)
--- NOTE | 2023-03-08 18:00 | NUR ---
Report given Jing JOE. Pt to [facility] Rm. [id number] via and all her belongings.
[2023-03-08] MEDS: atorvastatin 10mg tablet PO SCH (21:02)
[2023-03-08] MEDS: amLODIPine 5mg tablet PO SCH (21:03)
[2023-03-08] MEDS ORDERED: glucagon, human recombinant 1mg kit SUBCUT PRN (21:15)
[2023-03-08] MEDS ORDERED: dextrose 50%-water 50ml dispensing syringe IV PRN ×2 (21:15)
[2023-03-08] MEDS ORDERED: insulin Lispro (HumaLOG) vial - multi-dose SQ SCH (21:15)
[2023-03-08] MEDS ORDERED: DEXTROSE 15 GM of carb/4 tabs (each vial/BOTTLE has 4 tablets) PO PRN ×2 (21:15)
[2023-03-08] MEDS: insulin glargine (Lantus) pen - multi-dose SQ SCH (21:16)
[2023-03-09] VITALS (19 sets, daily range): BP systolic 127–167; BP diastolic 42–97; PULSE 69–173; RESP 12–19; TEMP 97.6–97.8; O2SAT 86–98
[2023-03-09] MEDS ORDERED: metoprolol tartrate 1mg/ml inj IV ONE ×2 (02:55→03:40)
--- NOTE | 2023-03-09 03:12 | NUR ---
Episode of Sinus tach rate 180's, BP 144/97, spo2 96% 4L NC, c/o heart racing, denies chest/shoulder/jaw pain, denies SOB, skin pink warm and dry, respirations even and unlabored, contacted MD Marie for new orders, obtained order for Metoprolol 5mg IV push now.
--- NOTE | 2023-03-09 03:45 | NUR ---
Rate continues in 150's, contacted MD Dean and obtained order for another dose of 5M IV metoprolol now.
--- NOTE | 2023-03-09 04:45 | NUR ---
Rate continues in the 150's tachy with widened QRS, notified Dr. Dean and obtained EKG, Dianne assessed EKG and assessed pt at bedside along with consultation via telephone with Dr. Jones. Dr. Dean ordered PO metoprolol 25mg now.
[2023-03-09] MEDS ORDERED: metoprolol tartrate 25mg tablet PO ONE (04:50)
--- NOTE | 2023-03-09 05:50 | NUR ---
New orders from Dr. Jones to transfer to ICU for further tx and monitor of care. Report given to Marely METAL DRILLING MACHINE OPERATOR and transferred to 2041 with RN present during transfer between units.
--- NOTE | 2023-03-09 06:00 | NUR ---
pt in room 2041- awake and alert- hr 150's sbp 150's. piv flushed l wrist- painful and becomes edematous. piv attempted- unsuccessful. epidural pacer connected
[2023-03-09] MEDS ORDERED: amiodarone 150mg/dext, iso-os 0 ML IV ONE (06:22)
[2023-03-09] MEDS ORDERED: amiodarone 150mg/dext, iso-os 100 ML IV ONE (06:25)
--- NOTE | 2023-03-09 06:30 | NUR ---
hr to 70's- sr without starting amiodarone. sbp 130s- discussed with dr cotton- will hold amiodarone and start low dose lopressor this am - order written. aware she had doses of iv lopressor and po earlier on telemetry
[2023-03-09] MEDS: acetaminophen 325mg tablet PO PRN ×2 (06:45→21:01)
[2023-03-09 06:53] LABS: BASOPHILS % (AUTO) 0.1 % (0-1); EOSINOPHILS % (AUTO) 0.1 % (0-6); HEMATOCRIT 34.8 % (35.0-45.0); HEMOGLOBIN 11.6 g/dl (12.0-16.0); LYMPHOCYTES % (AUTO) 11.7 % (21-51); MEAN CORPUSCULAR HEMOGLOBIN 29.7 PG (27.0-31.0); MEAN CORPUSCULAR HGB CONC 33.4 g/dL (33.0-36.5); MEAN CORPUSCULAR VOLUME 88.9 FL (78-98); MEAN PLATELET VOLUME 7.9 FL (7.4-10.4); MONOCYTES # (AUTO) 1.2 X10'3 (0-0.9); MONOCYTES % (AUTO) 7.2 % (2-12); NEUTROPHILS # (AUTO) 13.5 X10'3 (1.8-7.7); NEUTROPHILS % (AUTO) 80.9 % (42-75); PLATELET COUNT 276 X10'3 (140-440); RED BLOOD COUNT 3.91 X10'6 (4.20-5.60); RED CELL DISTRIBUTION WIDTH 12.9 % (11.5-14.5); WHITE BLOOD COUNT 16.7 X10'3 (4.5-11.0)
[2023-03-09 07:10] LABS: ALBUMIN 3.4 G/DL (3.4-5.0); ANION GAP 9 (8-16); BLOOD UREA NITROGEN 23 MG/DL (7-18); BUN/CREATININE RATIO 23.2 (10.0-20.0); CALCIUM 9.2 MG/DL (8.5-10.1); CHLORIDE 96 MMOL/L (99-107); CREATININE 0.99 MG/DL (0.40-0.90); GLUCOSE 233 MG/DL (70-104); POTASSIUM 4.7 MMOL/L (3.5-5.1); SODIUM 130 MMOL/L (135-145); TOTAL CARBON DIOXIDE 24.8 MMOL/L (24-32); eCRCL 41 ML/MIN; eGFR 54 ML/MIN
--- NOTE | 2023-03-09 07:30 | NUR ---
sandra for picc here- started extended iv for meds and lab draws
[2023-03-09] MEDS: sennosides/docusate sodium tablet PO SCH ×2 (08:00→20:00)
[2023-03-09] MEDS: lactose-reduced food (Ensure Enlive) - 237ml bottle PO SCH ×3 (08:00→18:00)
[2023-03-09] MEDS: pantoprazole 40mg Tablet.DR PO SCH (08:06)
[2023-03-09] MEDS: magnesium Cl slow-release 64mg tablet PO SCH ×2 (08:10→20:59)
[2023-03-09] MEDS: aspirin 81mg tab.chew PO SCH (08:10)
[2023-03-09] MEDS: insulin Lispro (HumaLOG) vial - multi-dose SQ SCH ×3 (08:57→18:47)
--- NOTE | 2023-03-09 09:00 | NUR ---
mag started for replacement- also routine po- mag 2.0
[2023-03-09] MEDS: metoprolol tartrate 12.5mg (1/2 tablet) PO SCH ×2 (09:29→21:03)
[2023-03-09] MEDS: amiodarone/D5 360MG/200ML BAG 200 ML IV SCH ×3 (12:29→18:50)
--- NOTE | 2023-03-09 14:29 | NUR ---
up in chair x 1 1/2 hrs- then ambulated around unit outside doors. chair briefly, then returned to bed. hr remains 80 throughout, sbp in 160's
--- NOTE | 2023-03-09 17:00 | NUR ---
up in chair for dinner
--- NOTE | 2023-03-09 18:45 | NUR ---
Patient (pt) in room PCU 3011. I have received report from Janine JOE and had the opportunity to ask questions and assume patient care. Patient sitting up in the chair finishing dinner with her daughter at the bedside. Assessment complete, heart rate regular sinus rhythm, no murmur, rub, or gallop. Lungs equal and clear throughout. No complaint of nausea or discomfort at this time. Pt also informed that she is going to be transferred back to PCU as soon as a bed is available.
--- NOTE | 2023-03-09 19:41 | NUR ---
Report called to receiving nurse Felice and questions answered. Transferred via wheelchair Belongings 3 bags with clothing, toiletries and pillows. Special Issues communicated to receiving nurse and medication and chart transferred with her to 3011a. Patient's daughter at the bedside as well.
[2023-03-09] MEDS: amLODIPine 5mg tablet PO SCH (21:01)
[2023-03-09] MEDS: atorvastatin 10mg tablet PO SCH (21:02)
[2023-03-09] MEDS: insulin glargine (Lantus) pen - multi-dose SQ SCH (21:14)
[2023-03-09] MEDS ORDERED: diphenhydrAMINE 25mg capsule PO ONE (22:00)
[2023-03-10] VITALS (8 sets, daily range): BP systolic 134–178; BP diastolic 50–72; PULSE 64–99; RESP 14–17; TEMP 97.3–98.5; O2SAT 91–100
[2023-03-10] MEDS: amiodarone/D5 360MG/200ML BAG 200 ML IV SCH (00:37)
[2023-03-10 06:18] LABS: HEMOGLOBIN 10.3 g/dl (12.0-16.0)
[2023-03-10 06:19] LABS: BASOPHILS % (AUTO) 0.4 % (0-1); EOSINOPHILS # (AUTO) 0.3 X10'3 (0-0.9); EOSINOPHILS % (AUTO) 2.2 % (0-6); HEMATOCRIT 30.1 % (35.0-45.0); LYMPHOCYTES # (AUTO) 3.6 X10'3 (1.1-4.8); LYMPHOCYTES % (AUTO) 30.3 % (21-51); MEAN CORPUSCULAR HEMOGLOBIN 30.2 PG (27.0-31.0); MEAN CORPUSCULAR HGB CONC 34.3 g/dL (33.0-36.5); MEAN PLATELET VOLUME 7.3 FL (7.4-10.4); MONOCYTES # (AUTO) 1.1 X10'3 (0-0.9); MONOCYTES % (AUTO) 9.2 % (2-12); NEUTROPHILS # (AUTO) 6.8 X10'3 (1.8-7.7); NEUTROPHILS % (AUTO) 57.9 % (42-75); PLATELET COUNT 255 X10'3 (140-440); RED BLOOD COUNT 3.42 X10'6 (4.20-5.60); RED CELL DISTRIBUTION WIDTH 12.9 % (11.5-14.5); WHITE BLOOD COUNT 11.8 X10'3 (4.5-11.0)
[2023-03-10 06:34] LABS: ALBUMIN 2.8 G/DL (3.4-5.0); ANION GAP 4 (8-16); BLOOD UREA NITROGEN 25 MG/DL (7-18); CALCIUM 8.7 MG/DL (8.5-10.1); CHLORIDE 100 MMOL/L (99-107); CREATININE 0.96 MG/DL (0.40-0.90); GLUCOSE 138 MG/DL (70-104); POTASSIUM 4.6 MMOL/L (3.5-5.1); SODIUM 135 MMOL/L (135-145); TOTAL CARBON DIOXIDE 31.1 MMOL/L (24-32); eCRCL 42 ML/MIN; eGFR 56 ML/MIN
[2023-03-10] MEDS: lactose-reduced food (Ensure Enlive) - 237ml bottle PO SCH ×3 (08:00→18:00)
[2023-03-10] MEDS: magnesium Cl slow-release 64mg tablet PO SCH ×2 (08:00→20:00)
[2023-03-10] MEDS: sennosides/docusate sodium tablet PO SCH ×2 (08:00→19:53)
[2023-03-10] MEDS: pantoprazole 40mg Tablet.DR PO SCH (08:51)
[2023-03-10] MEDS: aspirin 81mg tab.chew PO SCH (08:51)
[2023-03-10] MEDS: metoprolol tartrate 12.5mg (1/2 tablet) PO SCH (08:51)
[2023-03-10] MEDS ORDERED: metoprolol tartrate 50mg tablet PO STA (11:16)
--- NOTE | 2023-03-10 11:26 | NUR ---
Initial: Pt admit for severe three-vessel coronary disease, currently POD #5 s/p CABG x 3. Pt continues on no concentrated sweets diet and with average 33% PO intake of meals since admit meeting 53% estimated energy needs and 48% estimated protein needs. Pt now receiving an Ensure Enlive TID, documented with 50% PO intake of first two ONS 03/09 with refusal of ONS at breakfast this morning. IF pt continues with current average meal intake and consumes at least 50% PO intake of two ONS/day this will meet 75% estimated protein and energy needs. Pt has RD contact information and has been encouraged to reach out if needed. LBM 03/09 per EMR, first BM since admit. Hopefully resolution of constipation will improve appetite and subsequently PO intake. Will continue to follow closely. Recommendations: 1) Continue no concentrated sweets diet; CHO controlled diet not warranted d/t poor PO intake, geriatric age, and T2DM controlled for age 2) Vanilla or strawberry Ensure Enlive TID 3) Routine bowel care 4) Weekly scaled weights Addendum: 03/10/23 at [address] Amended: Links added.
[2023-03-10] MEDS: insulin Lispro (HumaLOG) vial - multi-dose SQ SCH (13:25)
--- NOTE | 2023-03-10 14:00 | NUR ---
pt refused PT Addendum: 03/10/23 at 1542 by Jacqueline Resendiz RN wrong pt. disregard
[2023-03-10] MEDS: acetaminophen 325mg tablet PO PRN (19:50)
[2023-03-10] MEDS: metoprolol tartrate 25mg tablet PO SCH (19:52)
[2023-03-10] MEDS: atorvastatin 10mg tablet PO SCH (19:53)
[2023-03-10] MEDS: amLODIPine 5mg tablet PO SCH (19:53)
[2023-03-10] MEDS ORDERED: diphenhydrAMINE 25mg capsule PO ONE (21:25)
[2023-03-10] MEDS: metoclopramide 5 mg/ml inj IV PRN (21:39)
[2023-03-10] MEDS: insulin glargine (Lantus) pen - multi-dose SQ SCH (22:24)
[2023-03-10] MEDS: HYDROcodone/acetaminophen 10/325mg tab PO PRN (22:26)
[2023-03-11 02:00] VITALS: BP 127/73; PULSE 79; RESP 19; TEMP 97.2; O2SAT 90
--- NOTE | 2023-03-11 06:46 | NUR ---
Patient in room PCU 3011. I have received report from Haseeb JOE and had the opportunity to ask questions and assume patient care.
[2023-03-11] MEDS: magnesium Cl slow-release 64mg tablet PO SCH (07:57)
[2023-03-11 07:58] LABS: BASOPHILS % (AUTO) 0.3 % (0-1); EOSINOPHILS # (AUTO) 0.4 X10'3 (0-0.9); EOSINOPHILS % (AUTO) 3.4 % (0-6); HEMATOCRIT 35.1 % (35.0-45.0); HEMOGLOBIN 11.7 g/dl (12.0-16.0); LYMPHOCYTES # (AUTO) 3.5 X10'3 (1.1-4.8); LYMPHOCYTES % (AUTO) 27.2 % (21-51); MEAN CORPUSCULAR HEMOGLOBIN 29.7 PG (27.0-31.0); MEAN CORPUSCULAR HGB CONC 33.4 g/dL (33.0-36.5); MEAN PLATELET VOLUME 7.1 FL (7.4-10.4); MONOCYTES # (AUTO) 1.4 X10'3 (0-0.9); MONOCYTES % (AUTO) 11.2 % (2-12); NEUTROPHILS # (AUTO) 7.4 X10'3 (1.8-7.7); NEUTROPHILS % (AUTO) 57.9 % (42-75); PLATELET COUNT 318 X10'3 (140-440); RED BLOOD COUNT 3.94 X10'6 (4.20-5.60); RED CELL DISTRIBUTION WIDTH 12.8 % (11.5-14.5); WHITE BLOOD COUNT 12.8 X10'3 (4.5-11.0)
[2023-03-11] MEDS: pantoprazole 40mg Tablet.DR PO SCH (07:58)
[2023-03-11] MEDS: aspirin 81mg tab.chew PO SCH (07:58)
[2023-03-11 08:00] VITALS: BP 161/58; PULSE 93; RESP 23; TEMP 98.4; O2SAT 95
[2023-03-11] MEDS: sennosides/docusate sodium tablet PO SCH (08:00)
[2023-03-11] MEDS: lactose-reduced food (Ensure Enlive) - 237ml bottle PO SCH (08:00)
[2023-03-11 08:01] VITALS: BP_SYST 161; PULSE 93
[2023-03-11] MEDS: metoprolol tartrate 25mg tablet PO SCH (08:01)
[2023-03-11] MEDS: acetaminophen 325mg tablet PO PRN (08:02)
[2023-03-11 08:30] LABS: ANION GAP 8 (8-16); BLOOD UREA NITROGEN 20 MG/DL (7-18); BUN/CREATININE RATIO 20.2 (10.0-20.0); CALCIUM 8.9 MG/DL (8.5-10.1); CHLORIDE 98 MMOL/L (99-107); CREATININE 0.99 MG/DL (0.40-0.90); GLUCOSE 149 MG/DL (70-104); POTASSIUM 4.4 MMOL/L (3.5-5.1); SODIUM 133 MMOL/L (135-145); TOTAL CARBON DIOXIDE 26.7 MMOL/L (24-32); eCRCL 41 ML/MIN; eGFR 54 ML/MIN
[2023-03-11] MEDS ORDERED: HYDR-3972 PO ×2 (09:52)
--- NOTE | 2023-03-11 11:09 | NUR ---
Pt was DC'd as per 's orders. Pt was unhooked from all IV and tele. Pt was educated at bedside with family, all questions were answered. Pt will schedule follow up appointment and belt picker their meds at their pharmacy. All belongings were gathered by family and sent with pt. Pt was wheeled down to lobby by licensed nursing assistant. Pt was put in private vehicle destined for home.
== END 2023-03-11 11:02 | disposition home health service (06) | DRG 236 ==
LOC: PAS IN 05:35 → EDBD 08:30 → ICU 2S 13:45 → PCU 3S 03-08 18:07 → ICU 2S 03-09 05:50 → PCU 3S 03-09 19:30
PROVIDERS: ADMIT Thoracic Surgery (Cardiothoracic Vascular Surgery); ATTEND Thoracic Surgery (Cardiothoracic Vascular Surgery)
PROC: 06BP4ZZ Excision of Right Saphenous Vein, Percutaneous Endoscopic Approach (ICD-10-PCS; 2023-03-05)
PROC: 5A1221Z Performance of Cardiac Output, Continuous (ICD-10-PCS; 2023-03-05)
PROC: B24BZZ4 Ultrasonography of Heart with Aorta, Transesophageal (ICD-10-PCS; 2023-03-05)
PROC: 30233N1 Transfusion of Nonautologous Red Blood Cells into Peripheral Vein, Percutaneous Approach (ICD-10-PCS; 2023-03-05)
PROC: 021109W Bypass Coronary Artery, Two Arteries from Aorta with Autologous Venous Tissue, Open Approach (ICD-10-PCS; 2023-03-05)
PROC: 02100A3 Bypass Coronary Artery, One Artery from Coronary Artery with Autologous Arterial Tissue, Open Approach (ICD-10-PCS; principal; 2023-03-05 10:15)
DX: I25.10 Atherosclerotic heart disease of native coronary artery without angina pectoris (principal); I48.20 Chronic atrial fibrillation, unspecified; N18.30 Chronic kidney disease, stage 3 unspecified; D64.9 Anemia, unspecified; D72.829 Elevated white blood cell count, unspecified; E11.22 Type 2 diabetes mellitus with diabetic chronic kidney disease; E11.51 Type 2 diabetes mellitus with diabetic peripheral angiopathy without gangrene; E78.00 Pure hypercholesterolemia, unspecified; I12.9 Hypertensive chronic kidney disease with stage 1 through stage 4 chronic kidney disease, or unspecified chronic kidney disease; Z95.5 Presence of coronary angioplasty implant and graft; Z79.899 Other long term (current) drug therapy
CPT/HCPCS: 36410; 36415; 36430; 36600; 71045; 71046; 76937; 80048; 80053; 81003; 82330; 82435; 82803; 82947; 82948; 83036; 83735; 84100; 84132; 84295; 85007; 85018; 85025; 85347; 85610; 85730; 86885; 86900; 86901; 86920; 87081; 93005; 93312; 93325; 93970; 94002; 94010; 94664; 94668; 94760; 97116; 97161; 97530; 97535; A4421; A4615; A4618; A4620; A6258; A6449; A7000; A7048; C1751; G0378; J0131; J0171; J0282; J0690; J1644; J1815; J1885; J1940; J2060; J2150; J2250; J2370; J2405; J2440; J2704; J2720; J2765; J2930; J3370; J3475; J3480; J3490; J7030; J7040; J7050; J7060; J7120; P9016; P9045; P9047; Q0163; S0020

== ENCOUNTER 2023-03-12 20:05 | Inpatient (IN) | payer MEDICARE ==
[~2023-03-12] VITALS: Ht 170.2 cm; Wt 61.4 kg
[~2023-03-12 20:05] MED LIST changes: -DOCUMENT DATE & TIME OF BETA-BLOCKER PO ONE; +HYDR-3972 PO; -ISOS30TA84 PO; -Insulin Reg/NS 100units/100mL 100 ML IV SCH; -LORazepam 2 mg/ml vial IV ONE; -albuterol 2.5 MG/3 ML nebule NEB ONE; -cefazolin 2gm/D5W 100mL 100 ML IV ONE; -dextrose 50%-water 50ml dispensing syringe IV PRN; -famotidine 20mg tablet PO ONE; -metoprolol tartrate 12.5mg (1/2 tablet) PO ONE; -mupirocin 2% nasal ointment 1gm UD NS ONE; -ringers solution, lacted 1,000 ML IV SCH; -vancomycin/NS 1 GM in NS 250 ML IV ONE
[2023-03-12 20:30] LABS: BASOPHILS # (AUTO) 0.1 X10'3 (0-0.2); BASOPHILS % (AUTO) 0.6 % (0-1); EOSINOPHILS # (AUTO) 0.8 X10'3 (0-0.9); EOSINOPHILS % (AUTO) 5.3 % (0-6); HEMATOCRIT 35.8 % (35.0-45.0); HEMOGLOBIN 11.8 g/dl (12.0-16.0); LYMPHOCYTES # (AUTO) 4.7 X10'3 (1.1-4.8); MEAN CORPUSCULAR HEMOGLOBIN 29.8 PG (27.0-31.0); MEAN CORPUSCULAR HGB CONC 33.1 g/dL (33.0-36.5); MEAN CORPUSCULAR VOLUME 90.2 FL (78-98); MEAN PLATELET VOLUME 7.3 FL (7.4-10.4); MONOCYTES # (AUTO) 1.4 X10'3 (0-0.9); MONOCYTES % (AUTO) 9.4 % (2-12); NEUTROPHILS # (AUTO) 7.8 X10'3 (1.8-7.7); NEUTROPHILS % (AUTO) 52.7 % (42-75); PLATELET COUNT 441 X10'3 (140-440); RED BLOOD COUNT 3.97 X10'6 (4.20-5.60); RED CELL DISTRIBUTION WIDTH 13.6 % (11.5-14.5); WHITE BLOOD COUNT 14.7 X10'3 (4.5-11.0)
[2023-03-12 20:41] LABS: ALANINE AMINOTRANSFERASE 20 U/L (12-78); ALBUMIN 3.4 G/DL (3.4-5.0); ALKALINE PHOSPHATASE 93 IU/L (46-116); ANION GAP 11 (8-16); ASPARTATE AMINO TRANSFERASE 17 U/L (10-37); BILIRUBIN,TOTAL 0.4 MG/DL (0.1-1.0); BLOOD UREA NITROGEN 22 MG/DL (7-18); BUN/CREATININE RATIO 16.7 (10.0-20.0); CALCIUM 9.2 MG/DL (8.5-10.1); CHLORIDE 95 MMOL/L (99-107); CREATININE 1.32 MG/DL (0.40-0.90); GLUCOSE 317 MG/DL (70-104); POTASSIUM 4.4 MMOL/L (3.5-5.1); SODIUM 130 MMOL/L (135-145); TOTAL CARBON DIOXIDE 24.4 MMOL/L (24-32); TOTAL PROTEIN 6.7 G/DL (6.4-8.2); eCRCL 33 ML/MIN; eGFR 39 ML/MIN
[2023-03-12] MEDS ORDERED: diltiazem 5mg/ml 5ml inj. IV ONE (23:05)
[2023-03-12] MEDS: normal saline 500ml IV soln 500 ML IV SCH (23:33)
[2023-03-13] MEDS ORDERED: metoclopramide 5 mg/ml inj IV ONE (00:25)
[2023-03-13] MEDS ORDERED: normal saline 500ml IV soln 500 ML IV SCH (00:25)
[2023-03-13] MEDS ORDERED: HYDROcodone/acetaminophen 5mg/325mg tablet PO ONE ×2 (00:25→21:20)
[2023-03-13] MEDS: normal saline 500ml IV soln 500 ML IV SCH (00:28)
--- NOTE | 2023-03-13 00:52 | NUR ---
IVP GIVEN BY HOUSE SUP
[2023-03-13] MEDS ORDERED: potassium Cl 20 mEq SR tablet PO PRN ×2 (01:20)
[2023-03-13] MEDS: normal saline 1000ml 1,000 ML IV SCH ×2 (01:20→22:00)
[2023-03-13] MEDS ORDERED: magnesium 2GM in 50ml NS 50 ML IV PRN (01:20)
[2023-03-13] MEDS ORDERED: ondansetron/PF 4mg/2ml inj IV PRN (01:20)
[2023-03-13] MEDS ORDERED: potassium Cl 40MEQ/1/2NS 520ml 520 ML IV PRN (01:20)
[2023-03-13] MEDS ORDERED: magnesium 4gm in 100ml NS 100 ML IV PRN (01:20)
[2023-03-13] MEDS ORDERED: mag hydrox/Alum hydrox/simeth 30ml oral suspension PO PRN (01:20)
[2023-03-13] MEDS ORDERED: magnesium Cl slow-release 64mg tablet PO PRN (01:20)
[2023-03-13] MEDS ORDERED: magnesium hydroxide 30ml (MOM) UD suspension PO PRN (01:20)
[2023-03-13] MEDS ORDERED: glucagon, human recombinant 1mg kit SUBCUT PRN (01:25)
[2023-03-13] MEDS ORDERED: DEXTROSE 15 GM of carb/4 tabs (each vial/BOTTLE has 4 tablets) PO PRN ×2 (01:25)
[2023-03-13] MEDS ORDERED: dextrose 50%-water 50ml dispensing syringe IV PRN ×2 (01:25)
[2023-03-13] MEDS ORDERED: MESSAGE TO PHARMACY PO ONE (01:25)
[2023-03-13] MEDS: acetaminophen 325mg tablet PO PRN ×2 (05:45→14:21)
[2023-03-13 06:25] LABS: MAGNESIUM 1.8 MG/DL (1.5-2.4); POTASSIUM 4.3 MMOL/L (3.5-5.1)
--- NOTE | 2023-03-13 07:30 | NUR ---
ASSUMED PT CARE. PT RESTING IN NO APPARENT DISTRESS. VISITOR AT BEDSIDE.
[2023-03-13] MEDS: K and/or MAG REPLACEMENT MC SCH ×2 (08:00→20:00)
--- NOTE | 2023-03-13 08:34 | NUR ---
PT USED OWN MONITOR TO CHECK BG BEFORE BREAKFAST. BG IS 136.
[2023-03-13] MEDS: docusate sod 100mg capsule PO SCH ×2 (09:49→20:00)
[2023-03-13] MEDS: apixaban 2.5mg tablet PO SCH ×2 (09:49→20:00)
[2023-03-13] MEDS: metoprolol tartrate 50mg tablet PO SCH ×2 (09:52→20:00)
[2023-03-13] MEDS: insulin Lispro (HumaLOG) vial - multi-dose SQ SCH ×2 (09:56→18:20)
[2023-03-13] MEDS ORDERED: DIPH-735 PO (13:47)
[2023-03-13] MEDS ORDERED: HYDR-3973 PO (13:47)
--- NOTE | 2023-03-13 14:00 | NUR ---
pt resting in no apparent distress
--- NOTE | 2023-03-13 15:52 | NUR ---
INFORMED HOSPITALIST THAT PATIENT HAS NOT HAD LABS TODAY
--- NOTE | 2023-03-13 16:00 | NUR ---
PT RESTING IN NO APPARENT DISTRESS. VISITOR AT BEDSIDE.
--- NOTE | 2023-03-13 17:28 | NUR ---
PT CONVERTED TO SINUS RHYTHM. MD INFORMED VIA PAGE
[2023-03-13] MEDS ORDERED: insulin glargine (Lantus) pen - multi-dose SQ SCH (21:00)
[2023-03-13] MEDS ORDERED: ondansetron/PF 4mg/2ml inj IV ONE (21:30)
--- NOTE | 2023-03-13 22:05 | NUR ---
pt resting , sleeping no visual signs of discompfort nor distress. equal rise and fall of chest while breathing.
[2023-03-14] MEDS ORDERED: Melatonin 3mg tablet PO ONE (00:20)
--- NOTE | 2023-03-14 04:36 | NUR ---
pt resting , sleeping no visual signs of discompfort nor distress. equal rise and fall of chest while breathing.
[2023-03-14 06:09] VITALS: TEMP 98.6
[2023-03-14] MEDS: acetaminophen 325mg tablet PO PRN (06:41)
[2023-03-14] MEDS: docusate sod 100mg capsule PO SCH (08:00)
[2023-03-14] MEDS: K and/or MAG REPLACEMENT MC SCH (08:00)
[2023-03-14 08:17] LABS: BASOPHILS # (AUTO) 0.1 X10'3 (0-0.2); BASOPHILS % (AUTO) 0.9 % (0-1); EOSINOPHILS # (AUTO) 0.6 X10'3 (0-0.9); EOSINOPHILS % (AUTO) 5.4 % (0-6); HEMATOCRIT 30.3 % (35.0-45.0); HEMOGLOBIN 10.1 g/dl (12.0-16.0); LYMPHOCYTES # (AUTO) 1.9 X10'3 (1.1-4.8); LYMPHOCYTES % (AUTO) 16.3 % (21-51); MEAN CORPUSCULAR HGB CONC 33.4 g/dL (33.0-36.5); MEAN PLATELET VOLUME 7.1 FL (7.4-10.4); MONOCYTES % (AUTO) 8.4 % (2-12); NEUTROPHILS # (AUTO) 7.8 X10'3 (1.8-7.7); PLATELET COUNT 374 X10'3 (140-440); RED BLOOD COUNT 3.36 X10'6 (4.20-5.60); RED CELL DISTRIBUTION WIDTH 13.3 % (11.5-14.5); WHITE BLOOD COUNT 11.4 X10'3 (4.5-11.0)
[2023-03-14] MEDS ORDERED: APIX2.5T PO (08:36)
[2023-03-14 09:06] LABS: ALANINE AMINOTRANSFERASE 19 U/L (12-78); ALBUMIN 2.8 G/DL (3.4-5.0); ALBUMIN/GLOBULIN RATIO 0.8 (1.1-1.5); ALKALINE PHOSPHATASE 74 IU/L (46-116); ANION GAP 8 (8-16); ASPARTATE AMINO TRANSFERASE 15 U/L (10-37); BILIRUBIN,TOTAL 0.3 MG/DL (0.1-1.0); BLOOD UREA NITROGEN 16 MG/DL (7-18); BUN/CREATININE RATIO 16.3 (10.0-20.0); CALCIUM 8.8 MG/DL (8.5-10.1); CHLORIDE 99 MMOL/L (99-107); CREATININE 0.98 MG/DL (0.40-0.90); GLUCOSE 226 MG/DL (70-104); MAGNESIUM 1.8 MG/DL (1.5-2.4); POTASSIUM 4.8 MMOL/L (3.5-5.1); SODIUM 133 MMOL/L (135-145); TOTAL CARBON DIOXIDE 25.6 MMOL/L (24-32); TOTAL PROTEIN 6.1 G/DL (6.4-8.2); eCRCL 44 ML/MIN; eGFR 55 ML/MIN
[2023-03-14] MEDS: apixaban 2.5mg tablet PO SCH (10:00)
[2023-03-14] MEDS: metoprolol tartrate 50mg tablet PO SCH (10:04)
[2023-03-14] MEDS: insulin Lispro (HumaLOG) vial - multi-dose SQ SCH (10:07)
[2023-03-14 11:31] VITALS: BP 135/59; PULSE 90; RESP 16; O2SAT 96
[2023-03-15] MEDS ORDERED: ALPR0.5T8 PO (20:57)
[2023-03-15] MEDS ORDERED: APIX2.5T PO (21:01)
== END 2023-03-14 10:36 | disposition home or self-care (01) | DRG 280 ==
LOC: ER 20:06 → ED HOLD 03-13 01:23 → EDBEDREQSVC 03-14 09:21
PROVIDERS: ADMIT Internal Medicine; ATTEND Internal Medicine
DX: I48.0 Paroxysmal atrial fibrillation (principal); I21.A1 Myocardial infarction type 2; I50.21 Acute systolic (congestive) heart failure; E87.1 Hypo-osmolality and hyponatremia; I11.0 Hypertensive heart disease with heart failure; E11.9 Type 2 diabetes mellitus without complications; I10 Essential (primary) hypertension; I25.10 Atherosclerotic heart disease of native coronary artery without angina pectoris; Z87.891 Personal history of nicotine dependence; Z95.1 Presence of aortocoronary bypass graft; Z88.5 Allergy status to narcotic agent; Z79.899 Other long term (current) drug therapy; Z79.82 Long term (current) use of aspirin
CPT/HCPCS: 36415; 71045; 80053; 83735; 83880; 84132; 84484; 85025; 99285; A4615; G0378; J1815; J2405; J2765; J3490; J7030; J7040

== ENCOUNTER 2023-03-15 06:29 | Observation (INO) | payer MEDICARE ==
[~2023-03-15] VITALS: Ht 170.2 cm; Wt 61.4 kg
[~2023-03-15 06:29] MED LIST changes: -AMLO5TAB4 PO; +APIX2.5T PO; -CALC600T26 PO; -CYAN50009 PO; -DICL100G59 TOP; +DIPH-735 PO; -DIPH25TA62 PO; -FLAX10007 PO; -HYDR-3972 PO; +HYDR-3973 PO; -HYDR28CR14 TOP; -OMEG100037 PO; -PREMARIN 0.625 MG VG; -RESV250C2 PO; -UBID200C18 PO; -[UNRECOGNIZED DRUG - OTHER] PO
--- NOTE | 2023-03-15 06:58 | NUR ---
MSE COMPLETED BY DR KEENE
[2023-03-15] MEDS ORDERED: diltiazem 5mg/ml 5ml inj. IV ONE (07:15)
[2023-03-15 07:25] LABS: BASOPHILS # (AUTO) 0.1 X10'3 (0-0.2); BASOPHILS % (AUTO) 0.6 % (0-1); EOSINOPHILS # (AUTO) 0.5 X10'3 (0-0.9); HEMATOCRIT 31.7 % (35.0-45.0); HEMOGLOBIN 10.7 g/dl (12.0-16.0); LYMPHOCYTES # (AUTO) 2.1 X10'3 (1.1-4.8); LYMPHOCYTES % (AUTO) 15.5 % (21-51); MEAN CORPUSCULAR HEMOGLOBIN 30.1 PG (27.0-31.0); MEAN CORPUSCULAR HGB CONC 33.8 g/dL (33.0-36.5); MEAN CORPUSCULAR VOLUME 89.1 FL (78-98); MEAN PLATELET VOLUME 6.8 FL (7.4-10.4); MONOCYTES % (AUTO) 7.5 % (2-12); NEUTROPHILS # (AUTO) 9.7 X10'3 (1.8-7.7); NEUTROPHILS % (AUTO) 72.4 % (42-75); PLATELET COUNT 469 X10'3 (140-440); RED BLOOD COUNT 3.56 X10'6 (4.20-5.60); RED CELL DISTRIBUTION WIDTH 13.3 % (11.5-14.5); WHITE BLOOD COUNT 13.5 X10'3 (4.5-11.0)
[2023-03-15 07:49] LABS: ALANINE AMINOTRANSFERASE 17 U/L (12-78); ALBUMIN/GLOBULIN RATIO 0.8 (1.1-1.5); ALKALINE PHOSPHATASE 83 IU/L (46-116); ANION GAP 7 (8-16); ASPARTATE AMINO TRANSFERASE 11 U/L (10-37); BILIRUBIN,TOTAL 0.4 MG/DL (0.1-1.0); BLOOD UREA NITROGEN 16 MG/DL (7-18); BUN/CREATININE RATIO 15.2 (10.0-20.0); CALCIUM 9.1 MG/DL (8.5-10.1); CHLORIDE 98 MMOL/L (99-107); CREATININE 1.05 MG/DL (0.40-0.90); GLUCOSE 241 MG/DL (70-104); POTASSIUM 4.5 MMOL/L (3.5-5.1); SODIUM 131 MMOL/L (135-145); TOTAL CARBON DIOXIDE 26.1 MMOL/L (24-32); TOTAL PROTEIN 6.6 G/DL (6.4-8.2); eCRCL 41 ML/MIN; eGFR 50 ML/MIN
[2023-03-15] MEDS: metoprolol tartrate 1mg/ml inj IV SCH ×3 (08:27→08:55)
[2023-03-15] MEDS ORDERED: morphine 2 MG/ML inj. syringe IV STA ×2 (08:33→12:55)
[2023-03-15] MEDS ORDERED: ondansetron/PF 4mg/2ml inj IV ONE (08:35)
[2023-03-15 09:01] LABS: BILIRUBIN,URINE NEGATIVE (Neg); CLARITY,URINE SLIGHTLY CLOUDY (Clear); COLOR,URINE YELLOW (Yellow); GLUCOSE, URINE 100 mg/dl (Neg); KETONES,URINE NEGATIVE (Neg); LEUKOCYTE ESTERASE ,URINE NEGATIVE (Neg); NITRITES, URINE NEGATIVE (Neg); OCCULT BLOOD,URINE NEGATIVE (Neg); PH,URINE 6.5 (4.8-8.0); PROTEIN,URINE TRACE mg/dl (Neg); UROBILINOGEN,URINE 0.2 E.U/dL (0.2-1.0)
--- NOTE | 2023-03-15 09:05 | NUR ---
LUISA CALLED THE [employer] [employer] [facility]ECUT[facility], DIDN'T ANSWER, LUISA LEFT A MESSAGE.
[2023-03-15] MEDS ORDERED: metoprolol tartrate 50mg tablet PO STA (09:08)
[2023-03-15 09:26] LABS: UA COLLECTION TYPE OTHER
[2023-03-15 09:29] LABS: SQUAMOUS EPITHELIAL CELL,UR MANY /LPF (FEW)
[2023-03-15 09:30] LABS: BACTERIA,URINE 2+ /HPF (Neg); WBC,URINE 0-4 /HPF (0-4)
[2023-03-15 09:31] LABS: AMORPHOUS URATES 1+
--- NOTE | 2023-03-15 09:47 | NUR ---
UP TO BEDSIDE COMMODE, PT STEADY.
[2023-03-15 09:50] LABS: MAGNESIUM 1.7 MG/DL (1.5-2.4)
--- NOTE | 2023-03-15 11:07 | NUR ---
PT PROVIDED FOOD PER REQUEST, MD AWARE AND OKAY'D. DAUGHTER REMAINS AT BEDSIDE, PT ABLE TO MAKE ALL NEEDS KNOWN.
--- NOTE | 2023-03-15 13:55 | NUR ---
tech paged for hospitalist
[2023-03-15] MEDS ORDERED: morphine 2 MG/ML inj. syringe IV PRN (14:55)
--- NOTE | 2023-03-15 15:10 | NUR ---
Hospitalist paged regarding pts BG [phone].
--- NOTE | 2023-03-15 17:35 | NUR ---
PROVIDED DINNER TRAY. PT ALERT AND ORIENTED. DAUGHTER REMAINS AT BEDSIDE. PT DENIES PAIN.
[2023-03-15] MEDS ORDERED: ondansetron/PF 4mg/2ml inj IV PRN (17:45)
[2023-03-15] MEDS ORDERED: potassium Cl 40MEQ/1/2NS 520ml 520 ML IV PRN (17:45)
[2023-03-15] MEDS ORDERED: magnesium 2GM in 50ml NS 50 ML IV PRN (17:45)
[2023-03-15] MEDS ORDERED: potassium Cl 20 mEq SR tablet PO PRN ×2 (17:45)
[2023-03-15] MEDS ORDERED: PERFLUTREN PROTEIN-A MICROSPHR (Optison) 0.22 MG/ML 3ML VIAL IV ONE (17:45)
[2023-03-15] MEDS ORDERED: acetaminophen 325mg tablet PO PRN (17:45)
[2023-03-15] MEDS ORDERED: magnesium Cl slow-release 64mg tablet PO PRN (17:45)
[2023-03-15] MEDS ORDERED: magnesium 4gm in 100ml NS 100 ML IV PRN (17:45)
--- NOTE | 2023-03-15 19:22 | NUR ---
PCU [employer] TO TAKE THE PT. RECIEVING NURSE WILL CALL WHEN ABLE TO TAKE REPORT.
[2023-03-15 20:00] VITALS: BP 182/70; PULSE 99; RESP 16; TEMP 97.3; O2SAT 99
[2023-03-15] MEDS: K and/or MAG REPLACEMENT MC SCH (20:00)
[2023-03-15] MEDS ORDERED: ALPR0.5T8 PO (20:57)
[2023-03-15] MEDS ORDERED: APIX2.5T PO (21:01)
[2023-03-15] MEDS: docusate sod 100mg capsule PO SCH (21:17)
[2023-03-15] MEDS ORDERED: DEXTROSE 15 GM of carb/4 tabs (each vial/BOTTLE has 4 tablets) PO PRN ×2 (21:40)
[2023-03-15] MEDS ORDERED: ALPRAZolam 0.5mg tablet PO PRN (21:40)
[2023-03-15] MEDS ORDERED: dextrose 50%-water 50ml dispensing syringe IV PRN ×2 (21:40)
[2023-03-15] MEDS ORDERED: MESSAGE TO PHARMACY PO ONE (21:40)
[2023-03-15] MEDS ORDERED: glucagon, human recombinant 1mg kit SUBCUT PRN (21:40)
[2023-03-15] MEDS ORDERED: metoprolol tartrate 25mg tablet PO ONE (21:45)
[2023-03-15 22:00] VITALS: BP 185/83; PULSE 95; RESP 20; TEMP 97.3; O2SAT 97
[2023-03-15] MEDS: insulin Lispro (HumaLOG) vial - multi-dose SQ SCH (23:13)
[2023-03-15] MEDS ORDERED: apixaban 2.5mg tablet PO ONE (23:20)
[2023-03-15] MEDS ORDERED: atorvastatin 20mg tablet PO ONE (23:20)
[2023-03-16 02:00] VITALS: BP 141/49; PULSE 86; RESP 17; TEMP 97.4; O2SAT 97
[2023-03-16 06:00] VITALS: BP 123/65; PULSE 98; RESP 16; TEMP 97.6; O2SAT 97
[2023-03-16] MEDS ORDERED: pantoprazole 40mg Tablet.DR PO SCH (07:30)
[2023-03-16] MEDS ORDERED: losartan 25mg tablet PO SCH (08:00)
[2023-03-16] MEDS: docusate sod 100mg capsule PO SCH (08:00)
[2023-03-16] MEDS ORDERED: metoprolol tartrate 12.5mg (1/2 tablet) PO SCH (08:00)
[2023-03-16] MEDS: K and/or MAG REPLACEMENT MC SCH (08:00)
[2023-03-16] MEDS ORDERED: apixaban 2.5mg tablet PO SCH (08:00)
[2023-03-16 08:49] LABS: BASOPHILS # (AUTO) 0.1 X10'3 (0-0.2); BASOPHILS % (AUTO) 0.9 % (0-1); EOSINOPHILS # (AUTO) 0.6 X10'3 (0-0.9); EOSINOPHILS % (AUTO) 4.5 % (0-6); HEMATOCRIT 35.7 % (35.0-45.0); HEMOGLOBIN 11.8 g/dl (12.0-16.0); LYMPHOCYTES # (AUTO) 3.2 X10'3 (1.1-4.8); LYMPHOCYTES % (AUTO) 22.6 % (21-51); MEAN CORPUSCULAR HEMOGLOBIN 29.3 PG (27.0-31.0); MEAN CORPUSCULAR VOLUME 88.9 FL (78-98); MEAN PLATELET VOLUME 7.1 FL (7.4-10.4); MONOCYTES # (AUTO) 1.2 X10'3 (0-0.9); MONOCYTES % (AUTO) 8.5 % (2-12); NEUTROPHILS % (AUTO) 63.5 % (42-75); PLATELET COUNT 565 X10'3 (140-440); RED BLOOD COUNT 4.02 X10'6 (4.20-5.60); RED CELL DISTRIBUTION WIDTH 13.5 % (11.5-14.5); WHITE BLOOD COUNT 14.2 X10'3 (4.5-11.0)
[2023-03-16 09:10] LABS: ALBUMIN 3.3 G/DL (3.4-5.0); ANION GAP 9 (8-16); BLOOD UREA NITROGEN 19 MG/DL (7-18); BUN/CREATININE RATIO 18.6 (10.0-20.0); CALCIUM 9.8 MG/DL (8.5-10.1); CHLORIDE 97 MMOL/L (99-107); CREATININE 1.02 MG/DL (0.40-0.90); GLUCOSE 244 MG/DL (70-104); POTASSIUM 4.6 MMOL/L (3.5-5.1); SODIUM 133 MMOL/L (135-145); TOTAL CARBON DIOXIDE 26.7 MMOL/L (24-32); eCRCL 43 ML/MIN; eGFR 52 ML/MIN
[2023-03-16] MEDS: insulin Lispro (HumaLOG) vial - multi-dose SQ SCH (09:54)
--- NOTE | 2023-03-16 10:53 | NUR ---
sent to peña: [phone]: pt has ble wounds with MDRO in them. ID consult? wound consult? Neither have been ordered. pt has been here since Mar.13. thank you. Jacqueline JOE [phone]
[2023-03-16 11:00] VITALS: BP 113/65; PULSE 92; RESP 13; TEMP 97.8; O2SAT 100
[2023-03-16] MEDS ORDERED: CefTRIAXone/D5W-Rocephin 1gm 50 ML IV SCH (11:15)
[2023-03-16] MEDS ORDERED: diltiazem 30mg tablet PO ONE (11:30)
[2023-03-16] MEDS ORDERED: AMOX-419 PO (12:24)
[2023-03-16] MEDS ORDERED: AMIO200T67 PO (12:25)
[2023-03-16] MEDS ORDERED: amiodarone 200mg tablet PO ONE (12:40)
--- NOTE | 2023-03-16 13:45 | NUR ---
Discharge instructions discussed with pt and family. All questions answered. Pt and family state they understand all instructions. Discontinued iv and tele. Pt will leave unit walking with family.
[2023-03-16] MEDS ORDERED: diltiazem 30mg tablet PO SCH (14:00)
[2023-03-16] MEDS ORDERED: insulin glargine (Lantus) pen - multi-dose SQ SCH (21:00)
[2023-03-16] MEDS ORDERED: atorvastatin 20mg tablet PO SCH (21:00)
== END 2023-03-16 16:01 | disposition home or self-care (01) ==
LOC: ER 06:30 → ED HOLD 14:36 → PCU 3S 19:53
PROVIDERS: ADMIT Internal Medicine; ATTEND Internal Medicine
DX: I48.0 Paroxysmal atrial fibrillation (principal); I48.20 Chronic atrial fibrillation, unspecified; I25.10 Atherosclerotic heart disease of native coronary artery without angina pectoris; E78.5 Hyperlipidemia, unspecified; E11.9 Type 2 diabetes mellitus without complications; K21.9 Gastro-esophageal reflux disease without esophagitis; D64.9 Anemia, unspecified; E87.1 Hypo-osmolality and hyponatremia; I10 Essential (primary) hypertension; F41.9 Anxiety disorder, unspecified; Z79.01 Long term (current) use of anticoagulants; Z79.4 Long term (current) use of insulin; Z79.84 Long term (current) use of oral hypoglycemic drugs; Z79.82 Long term (current) use of aspirin; Z79.899 Other long term (current) drug therapy; Z95.1 Presence of aortocoronary bypass graft
CPT/HCPCS: 36415; 71045; 80048; 80053; 81001; 82948; 83735; 83880; 84484; 85025; 93306; 96365; 96366; 96375; 96376; 99291; G0378; J0696; J1815; J2270; J3490; J7040